=== PATIENT | female | born 1950 | race Caucasian/White ===

== ENCOUNTER → 2019-12-17 | Outpatient (CLI) | payer OTHER ==
--- NOTE | 2019-12-17 16:33 | Diagnostic Imaging Report ---
EXAMINATION: CT head and face without contrast. TECHNIQUE: Multiple contiguous axial images were obtained through the face and brain without the use of intravenous contrast. All CT scans use one or more of the following dose optimizing techniques: automated exposure control, MA and/or KvP adjustment based on a patient size and exam type, or iterative reconstruction. HISTORY: Fall COMPARISON: None available. FINDINGS: The thomas-white matter differentiation is normal. No mass effect or midline shift. The ventricles are normal in size and configuration. Basilar cisterns are patent. There are no intra- or extra-axial fluid collections. There is no intracranial hemorrhage. The orbits are normal. Paranasal sinuses are normal. Mastoid air cells are clear. No soft tissue abnormality is seen. No osseus lesions or fractures are seen. No fracture is seen in the face. The nasal bones are normal. Mandible and maxillae are normal. Zygomatic arches are normal. Pterygoid plates are normal. No soft tissue abnormality is seen. IMPRESSION: 1. No acute intracranial abnormality. 2. No fracture in the face. Dictated by: Dictated on workstation # [id number]
== END ==
LOC: RAD 16:02
PROVIDERS: ATTEND Nurse Practitioner Family
DX: S09.90XA Unspecified injury of head, initial encounter (principal); S61.218A Laceration without foreign body of other finger without damage to nail, initial encounter; S50.312A Abrasion of left elbow, initial encounter; W01.10XA Fall on same level from slipping, tripping and stumbling with subsequent striking against unspecified object, initial encounter
CPT/HCPCS: 70450; 70486

== ENCOUNTER → 2020-01-09 | Outpatient (CLI) | payer MEDICARE, OTHER ==
--- NOTE | 2020-01-09 10:51 | Diagnostic Imaging Report ---
Indication: Left hip pain, fall 3 weeks ago. Time of exam: 10:38 AM 2 views of the left hip are obtained. Femoral acetabular alignment is normal. The femoral head and neck appear to be intact. No fractures are seen. Left-sided rami are intact. IMPRESSION: No acute bony abnormality is detected. Dictated by: Dictated on workstation # [id number]
== END ==
LOC: RAD FS 10:19
PROVIDERS: ATTEND Nurse Practitioner Family
DX: M25.552 Pain in left hip (principal); W19.XXXA Unspecified fall, initial encounter
CPT/HCPCS: 73502